=== PATIENT | male | born 1970 | race Caucasian/White ===

== ENCOUNTER → 2017-12-29 | Emergency (ER) | END | disposition home or self-care (01) ==

== ENCOUNTER 2018-03-30 20:12 | Emergency (ER) | END 2018-03-31 02:52 | disposition left against medical advice (07) ==

== ENCOUNTER 2019-01-20 23:43 | Emergency (ER) | payer OTHER ==
[~2019-01-20] VITALS: Ht 175.3 cm; Wt 119.7 kg
[~2019-01-20 23:43] MED LIST: ACET500C5 PO; CEPH-443 PO; DOCU-144 PO; HYDR-4011 PO; IBUP-1542 PO; LIDO35.415 TP; SULF1TAB31 PO
[2019-01-20 23:45] VITALS: Ht 175.3 cm; Wt 119.7 kg
[2019-01-21] MEDS ORDERED: IBUPROFEN 800 MG TAB PO ONE (02:30)
[2019-01-21] MEDS ORDERED: IBUP800T48 PO (03:12)
--- NOTE | 2019-01-21 03:12 | ERD ---
ER Documentation Chief Complaint Chief Complaint CP HPI This a 48-year-old man who is here for chest pain. The patient is complaining of sharp chest pain located in a pinpoint location at the midclavicular line on rib #3. He says he can put his finger on the area of pain in this area is increased in pain when he moves or at the end of inspiration, especially deep breaths. There is no substernal chest pressure or shortness of breath no diz ziness, no jaw pain elbow pain no palpitations no nausea ROS All systems reviewed and are negative except as per history of present illness. Medications Home Meds Active Scripts Ibuprofen* (Motrin*) 600 Mg Tab, 600 MG PO Q6, #30 TAB Prov:MARS CORRIGAN 03/31/18 Hydrocodone/Acetaminophen (Letha 5-325 Tablet) 1 Each Tablet, 1 EACH PO Q6, #20 TAB Prov:MARS CORRIGAN 03/31/18 Acetaminophen* (Tylophen*) 500 Mg Capsule, 1 CAP PO Q6H PRN for PAIN AND OR ELEVATED TEMP, #30 CAP Prov:KANE TOSCANO PA-C 12/29/17 Ibuprofen* (Motrin*) 600 Mg Tab, 600 MG PO Q6, #30 TAB Prov:KANE TOSCANOC 12/29/17 Sulfamethoxazole/Trimethoprim* (Bactrim Ds* Tablet) 1 Each Tablet, 1 TAB PO BID for 7 Days, #14 TAB Prov:KANE TOSCANOC 12/29/17 Cephalexin* (Keflex*) 500 Mg Capsule, 500 MG PO QID for 7 Days, CAP Prov:KANE TOSCANO PA-C 12/29/17 Docusate Sodium* (Colace*) 100 Mg Capsule, 100 MG PO TID, #30 CAP Prov:KANE TOSCANO PA-C 12/29/17 Lidocaine (LIDOCAINE) 35.44 Gm Oint...g., 35.44 GM TP prn, #1 TUB Prov:KANE TOSCANOC 12/29/17 Allergies Allergies: Coded Allergies: No Known Drug Allergies (Unverified Allergy, Unknown, 12/29/17) PMhx/Soc History of Surgery: No Anesthesia Reaction: No Hx Neurological Disorder: No Hx Respiratory Disorders: No Hx Cardiac Disorders: No Hx Psychiatric Problems: Yes (anxiety) Hx Miscellaneous Medical Probl: No Hx Alcohol Use: Yes (socially) Hx Substance Use: No Hx Tobacco Use: Yes (1 cigarette a day per pt verbatim) Smoking Status: Current every day smoker FmHx Family History: No coronary disease Physical Exam Vitals Vital Signs Date Temp Pulse Resp B/P (MAP) Pulse Ox O2 O2 Flow FiO2 Time Delivery Rate 01/21/19 91 17 128/84 95 Room Air 01:30 (99) 01/21/19 93 15 133/88 97 Room Air 01:19 (103) 01/20/19 97.9 65 20 149/85 96 23:45 (106) Physical Exam Const: Well-developed, well-nourished Head: Atraumatic, normocephalic Eyes: Normal Conjunctiva, PERRLA, EOMI, normal sclera, no nystagmus ENT: Normal External Ears, Nose and Mouth, moist mucus membranes. Neck: Full range of motion. No meningismus, no lymphadenopathy. Resp: Clear to auscultation bilaterally, no wheezing, rhonchi, rales Cardio: [Regular rate and rhythm, no murmurs, S1 S2 present, there is pinpoint tenderness to rib 3 at the midclavicular line that is reproducible to palpation., When you asked the patient to sit up from supine the pain also occurred again, the pain is also reproducible when you push on the left posterior rib cage. Will produce pain in the anterior rib cage at the same area Abd: Soft, non tender x 4, non distended. Normal bowel sounds, no guarding or rebound, no pulsitile abdominal masses or bruits Skin: No petechiae or rashes, no ecchymosis , no maculopapular rash Back: No midline or flank tenderness Ext: No cyanosis, or edema, FROM x 4, normal inspection, neurovascularly intact x 4 Neur: Awake and alert, STR 5/5 x 4, sensation intact x 4, no focal findings, cerebellum intact Psych: Normal Mood and Affect Results 24 hrs Laboratory Tests Test 01/21/19 01:37 Troponin I < 0.012 ng/ml Current Medications Medications Dose Sig/Earnest Start Time Status Last (Trade) Ordered Route PRN Stop Time Admin Dose Reason Admin Ibuprofen 800 mg ONCE ONCE 01/21/19 DC 01/21/19 (Motrin) PO 02:30 02:29 01/21/19 02:31 Procedures/MDM [place] [id number] Radiology Main Line: [phone] DIAGNOSTIC IMAGING REPORT Patient: ELIER KUMARI : 1970 Age: 48 Sex: M MR #: [id number] DOS: 01/21/19 0128 Ordering MD: ENIO GUILLEN DO Location: E/R Room/Bed: PROCEDURE: Chest. CLINICAL INDICATION: Chest pain. TECHNIQUE: Single frontal view of the chest was obtained. COMPARISON: None. FINDINGS: The cardiac silhouette is within normal limits. The aortic arch is unremarkable. There is no focal consolidation, vascular congestion or pleural effusion. There is no pneumothorax. IMPRESSION: No evidence for active cardiopulmonary disease. .Tushar Herron MD, MD Date Time Electronically viewed and signed by .Tushar Herron MD, MD on 01/21/2019 02:37 .T/ CC: ENIO GUILLEN DO [id number] EKG: Rate/Rhythm: Sinus tachycardia heart rate 103 QRS, ST, QT: NORMAL MO, QRS, QT] Impression: Sinus tachycardia The patient's pain is musculoskeletal in nature this is very reproducible with movement and palpation. Troponins negative and EKG is unremarkable as is chest x-ray. Heart rate during exam was 88 Patient feels much better at this time, and vital signs are normal, symptoms have improved. I did give strict instructions to return to the ED if symptoms continue or worsen, patient will otherwise follow-up with primary care physician. Patient understood instructions and agreed to plan. Disclaimer: Inadvertent spelling and grammatical errors are likely due to EHR/dictation software use and do not reflect on the overall quality of patient care. Also, please note that the electronic time recorded on this note does not necessarily reflect the actual time of the patient encounter. Departure Diagnosis: Primary Impression: Chest wall pain Condition: Stable ENIO GUILLEN DO January 21, 2019 03:12
[2019-01-21 03:36] VITALS: BP 118/70; PULSE 89; RESP 23
== END 2019-01-21 03:36 | disposition home or self-care (01) ==
LOC: E/R 23:43
DX: R07.89 Other chest pain (principal); R40.2142 Coma scale, eyes open, spontaneous, at arrival to emergency department; R40.2362 Coma scale, best motor response, obeys commands, at arrival to emergency department; R40.2252 Coma scale, best verbal response, oriented, at arrival to emergency department; F17.210 Nicotine dependence, cigarettes, uncomplicated
CPT/HCPCS: 71045; 84484